=== PATIENT | female | born 1955 | race Caucasian/White ===

== ENCOUNTER 2021-01-11 13:10 | Outpatient (CLI) | payer MEDICARE | END 2021-01-11 13:11 | disposition home or self-care (01) | LOC: CSHMAMMO 13:10 | PROVIDERS: ATTEND Family Medicine | DX: Z12.31 Encounter for screening mammogram for malignant neoplasm of breast (principal) | CPT/HCPCS: 77063; 77067 ==

== ENCOUNTER 2022-02-14 13:36 | Outpatient (CLI) | payer MEDICARE | END 2022-02-14 13:37 | disposition home or self-care (01) | LOC: CSHMAMMO 13:36 | PROVIDERS: ATTEND Family Medicine | DX: Z12.31 Encounter for screening mammogram for malignant neoplasm of breast (principal) | CPT/HCPCS: 77063; 77067 ==

== ENCOUNTER 2023-03-16 14:48 | Outpatient (CLI) | payer MEDICARE | END 2023-03-16 14:49 | disposition home or self-care (01) | LOC: CSHMAMMO 14:48 | PROVIDERS: ATTEND Family Medicine | DX: Z12.31 Encounter for screening mammogram for malignant neoplasm of breast (principal) | CPT/HCPCS: 77063; 77067 ==

== ENCOUNTER 2024-03-17 12:55 | Outpatient (CLI) | payer MEDICARE | END 2024-03-17 12:56 | disposition home or self-care (01) | LOC: CSHMAMMO 12:55 | PROVIDERS: ATTEND Family Medicine | DX: Z12.31 Encounter for screening mammogram for malignant neoplasm of breast (principal) | CPT/HCPCS: 77063; 77067 ==